=== PATIENT | female | born 1995 | race Caucasian/White ===

== ENCOUNTER 2022-04-21 14:11 | Emergency (ER) | payer OTHER, SELFPAY ==
--- NOTE | ~2022-04-21 | US_ITS ---
EXAMINATION: US OB <=14 wk fetus w TV DATE: 04/21/2022 18:08 INDICATION: Positive test. TECHNIQUE: Real-time transabdominal and transvaginal obstetric ultrasound. FINDINGS: No prior studies for comparison. The uterus measures 11 x 5.7 x 6.6 cm. There is a gestational sac which corresponds to a 5 week 5 day gestation. No pole is seen. There is a yolk sac. There is a subchorionic hemorrhage. Right ova ry measures 3.1 x 2.3 x 2.2 cm. Left ovary measures 3.3 x 2 x 1.5 cm. There is free fluid in the pelv is. IMPRESSION: 1. Intrauterine gestational sac corresponding to 5 week 5 day gestation (ROMMEL 12/17/2022). No fe e identified yet. 2: Moderate subchorionic hemorrhage. Reviewed, dictated and finalized at location A. IMPRESSION: 1. Intrauterine gestational sac corresponding to 5 week 5 day gestation (ROMMEL 08/2023). No pole identified yet. 2: Moderate subchorionic hemorrhage.
[2022-04-21 14:18] VITALS: BP 104/60; PULSE 71; RESP 16; TEMP 36.8; O2SAT 100
[2022-04-21 14:39] LABS: Appearance Urine Slightly Cloudy (Clear); Bilirubin Urine Negative (Negative); Blood Urine Negative (Negative); Color Urine Yellow (Yellow); Glucose Urine UA Negative (Negative); Ketones Urine Negative (Negative); Leukocyte Esterase Ur Trace LEU/UL (Negative); Nitrate Urine Negative (Negative); Protein Urine Negative (Negative); Specific Grav Ur 1.025 (1.001-1.035); Urobilinogen Urine 0.2 mg/dL (<2.0); pH Urine 6.5 (5.0-9.0)
--- NOTE | 2022-04-21 15:31 | ED.FEMALEGU ---
HPI - Female Genitourinary General Chief complaint: Urogenital-Female Stated complaint: burning with urination, period one week late Time Seen by Provider: 04/21/22 15:01 Source: patient Mode of arrival: ambulatory Limitations: no limitations History of Present Illness HPI Narrative: Patient is a 26-year-old female who presents the ED with report of urinary symptoms. Patient reports having urinary frequency and small void urines the past 4 days. She has also been having pain in her lower abdomen, worse in her left lower abdomen since then. She thought she may have a UTI. She notes a history of UTIs. She also reports that she is 1 week late on her menstrual cycle. She is currently sexually active. She had a child in July and has been having normal monthly menstrual cycles this year. She thought there was a chance she could be in March, but had a negative home test at that time. She did note her cycle in March consisted of more blood clots than usual, but did occur at the typical time. She has not had a cycle yet this month. She has not taken anything for the pain today. Denies any hematuria, fever, chills, nausea, vomiting. Patient's UPT positive in ED. This current makes her , 2 , 1 miscarriage. Patient sees [facility] in [facility]. Related Data Home Medications Medication Instructions Recorded Confirmed sertraline 50 mg tablet 50 mg PO DAILY 12/03/20 Allergies Allergy/AdvReac Type Severity Reaction Status Date / Time No Known Allergies Allergy Unverified 12/03/20 11:04 Review of Systems Review of Systems: CONSTITUTIONAL: Denies fever, chills, or sweats. CARDIOVASCULAR: Denies chest pain. RESPIRATORY: Denies dyspnea. GASTROINTESTINAL: Reports lower/LLQ ABD pain. Denies nausea, vomiting, or diarrhea. GENITOURINARY: Reports urinary frequency w/ small void urines. Denies hematuria, vaginal bleeding. SKIN: Denies rash or itching. MUSCULOSKELETAL: Denies back pain. NEUROLOGIC: Denies headache, numbness, or weakness. All systems reviewed & are unremarkable except as noted in HPI and below PMFSH Past Medical History Medical History (Updated 04/21/22 @ 18:36 by Leanna Price PA-C) History of miscarriage Spina bifida Surgical History Surgical History (Updated 04/21/22 @ 16:40 by Leanna Price PA-C) No pertinent past surgical history Family History Family History (Updated 12/03/20 @ 11:06 by Chrissie Riley MA) Mother Asthma Social History Social History (Updated 04/21/22 @ 16:40 by Leanna Price PA-C) Smoking status: Never smoker Alcohol intake: current Exam Narrative: GENERAL: Well appearing, thin, non-toxic, in no acute distress. HEAD: Normocephalic, atraumatic. NECK: Supple. No adenopathy, no masses. RESPIRATORY: Airway patent, respirations nonlabored. Clear to auscultation bilaterally, no rales, rhonchi, wheezing. CARDIOVASCULAR: Regular rate and rhythm without murmurs, rubs, or gallops. Peripheral pulses 2+ and equal bilaterally. ABDOMINAL: Soft, TTP in LLQ/suprapubic region, nondistended, no hepatosplenomegaly. Normoactive BS. MUSCULOSKELETAL: Moves all extremities. Strength/ROM intact without gross deformities. SKIN: Warm, dry, normal color. No rashes. NEURO: A&O X3. Speech clear. Cranial nerves II-XII grossly intact. Steady gait. No ataxic movements. PSYCHIATRIC: Appropriate mood and affect. Normal interaction. Course Vital Signs Vital signs: Vital Signs Temperature 98.3 F 04/21/22 14:18 Pulse Rate 71 04/21/22 14:18 Respiratory Rate 16 04/21/22 14:18 Blood Pressure 104/60 04/21/22 14:18 Pulse Oximetry 100 04/21/22 14:18 Oxygen Delivery Room Air 04/21/22 14:18 Temperature 98.3 F 04/21/22 14:18 Pulse Rate 71 04/21/22 14:18 Respiratory Rate 16 04/21/22 14:18 Blood Pressure 104/60 04/21/22 14:18 Pulse Oximetry 100 04/21/22 14:18 Oxygen Delivery Room Air
[2022-04-21 15:32] LABS: Mucus Urine Rare /lpf; Squamous Epithelial Cell Urine Few /hpf (Few); WBC Urine 16-20 /hpf
[2022-04-21 15:43] LABS: Add Urine Microscopic? YES
[2022-04-21 18:49] VITALS: BP 122/68; PULSE 76; RESP 18; O2SAT 99
== END 2022-04-21 18:50 | disposition home or self-care (01) ==
PROVIDERS: General Practice; Physician Assistant; Emergency Provider Emergency Medicine; PCP Physician Assistant
DX: O23.11 Infections of bladder in pregnancy, first trimester (principal); N30.01 Acute cystitis with hematuria; O99.891 Other specified diseases and conditions complicating pregnancy; Q05.9 Spina bifida, unspecified; O46.8X1 Other antepartum hemorrhage, first trimester; Z3A.01 Less than 8 weeks gestation of pregnancy
CPT/HCPCS: 36415; 76801; 76817; 81001; 81025; 84702; 87077; 87086; 87088; 99284

== ENCOUNTER 2023-01-02 08:59 | Emergency (ER) | payer OTHER, SELFPAY ==
--- NOTE | ~2023-01-02 | XR_ITS ---
XR chest 2V DATE: 01/02/2023 09:34 INDICATION: Shortness of breath. Mold exposure. TECHNIQUE: PA and lateral views COMPARISON: None FINDINGS: Normal heart size. No hilar or mediastinal enlargement. No pulmonary infiltrate or consolid ation, pleural effusion or pulmonary vascular congestion or pneumothorax. Included skeletal structure s appear normal. IMPRESSION: Negative Reviewed, dictated and finalized at location B. IMPRESSION: Negative
[2023-01-02 09:08] VITALS: BP 99/65; PULSE 68; RESP 12; TEMP 36.6; O2SAT 99
--- NOTE | 2023-01-02 09:11 | ED.URI ---
HPI - URI/Sore Throat General Chief Complaint: Upper Respiratory Infection Stated Complaint: SOB Time Seen by Provider: 01/02/23 09:17 Source: patient Mode of arrival: ambulatory Limitations: no limitations History of Present Illness HPI Narrative: 27 y/o female presented for c/o coughing, sneezing, and nasal congestion for about 2 weeks and is concerned for black mold exposure in her residence. cough is occasionally productive. Also reports dry skin. States she lives in the basement of a home, and has seen water leaking when it rains and black mold in the corners. States she fells better when out of the house. Denies epistaxis, sob, wheezing, n/v/d/f/c. Denies history of asthma or lung problems. Taking Benadryl nightly due to difficulty sleeping. Smokes marijuana occasionally Related Data Home Medications Medication Instructions Recorded Confirmed No Home Medications 01/02/23 01/02/23 Allergies Allergy/AdvReac Type Severity Reaction Status Date / Time No Known Allergies Allergy Verified 01/02/23 09:09 Review of Systems Review of Systems: CONSTITUTIONAL: Denies body aches, fever, chills, or sweats. EYES: Denies visual changes, redness, or discharge. ENT: Denies sore throat, or otalgia. CARDIOVASCULAR: Denies chest pain, palpitations, or edema. RESPIRATORY: Reports cough, denies sob, wheezing. GASTROINTESTINAL: Denies abdominal pain, nausea, vomiting, or diarrhea. GENITOURINARY: Denies dysuria or hematuria. SKIN: Denies rash, itching, or wounds. MUSCULOSKELETAL: Denies back pain, joint pain, or myalgia. NEUROLOGIC: Denies headache, numbness, tingling, or weakness. All systems reviewed & are unremarkable except as noted in HPI and below PMFSH Past Medical History Medical History History of miscarriage Spina bifida Surgical History Surgical History No pertinent past surgical history Family History Family History Mother Asthma Social History Social History Smoking status: Never smoker Alcohol intake: current Comments At time of signature, I have reviewed and agree with nursing past medical, surgical, social and family history unless otherwise noted. Please see nursing chart for further information. There is no relevant family history pertinent to the presenting complaint Exam Narrative: GENERAL: Well-appearing, in no acute distress. EYES: EOMI. No redness or drainage. Conjunctivae normal. ENT: Mucous membranes pink and moist. No rhinorrhea. TMs normal bilaterally. Throat normal. Uvula midline. NECK: Normal AROM. Supple. CHEST: No respiratory distress. LCTAB HEART: Regular rate and rhythm. No murmur appreciated. ABDOMEN: Soft, nontender, nondistended, normal active bowel sounds. EXTREMITIES: Normal range of motion. No edema. SKIN: Warm, dry, no rash. Capillary refill normal. Normal skin turgor. NEURO: Alert and oriented x3. Gait steady. PSYCH: Normal affect. Course Course Emergency Course: Patient is aware of diagnosis, understands and agrees to treatment plan. Anticipatory guidance given. Patient agrees to follow-up as directed and is aware of reasons to seek care at the emergency department. Portions of this record may have been created with voice recognition software Level of Care: Express Care Visit Vital Signs Vital signs: Vital Signs Temperature 98 F 01/02/23 09:08 Pulse Rate 68 01/02/23 09:08 Respiratory Rate 12 01/02/23 09:08 Blood Pressure 99/65 L 01/02/23 09:08 Pulse Oximetry 99 01/02/23 09:08 Oxygen Delivery Room Air 01/02/23 09:08 Temperature 98 F 01/02/23 09:08 Pulse Rate 68 01/02/23 09:08 Respiratory Rate 12 01/02/23 09:08 Blood Pressure 99/65 L 01/02/23 09:08 Pulse Oximetry 99 01/02/23 09:
== END 2023-01-02 10:27 | disposition home or self-care (01) ==
PROVIDERS: Emergency Provider Nurse Practitioner Family; PCP Physician Assistant
DX: J30.89 Other allergic rhinitis (principal)
CPT/HCPCS: 71046; 99213; G0463

== ENCOUNTER 2023-05-07 08:50 | Emergency (ER) | payer OTHER, SELFPAY ==
[2023-05-07 08:58] VITALS: BP 96/51; PULSE 82; RESP 16; TEMP 37.1; O2SAT 99
--- NOTE | 2023-05-07 09:22 | ED.GENADULT ---
HPI - General Adult General Chief complaint: Upper Respiratory Infection Stated complaint: congestion /diarrhea/back pain Source: patient Mode of arrival: ambulatory Limitations: no limitations History of Present Illness HPI narrative: Patient presents for evaluation of sick symptoms. She states that she first noted some sinus congestion one week ago. Symptoms have persisted since that time. Nasal discharge is green. She has developed a productive cough of clear/green sputum. Over the last 24 hrs she has developed nausea, vomiting and diarrhea. She has some lower abdominal cramping but is not sure if it is related to recent menstruation or associated with diarrhea. 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 She denies any vaginal discharge or urinary symptoms but believes she may have a UTI due to low back pain. She had some leftover antibiotics, which she believes may be flagyl, which she started taking for her symptoms. Related Data Allergies Allergy/AdvReac Type Severity Reaction Status Date / Time No Known Allergies Allergy Verified 05/07/23 09:07 Review of Systems Review of Systems: CONSTITUTIONAL: Denies fever, chills, or sweats. EYES: Denies visual changes, redness, or discharge. ENT: Reports sinus congestion, mucopurulent discharge from the nares and sore throat. CARDIOVASCULAR: Denies chest pain, palpitations, or edema. RESPIRATORY: Reports cough. Denies shortness of breath. GASTROINTESTINAL: Reports nausea, vomiting, diarrhea. Denies abdominal pain. GENITOURINARY: Denies dysuria or hematuria. SKIN: Denies rash or itching. MUSCULOSKELETAL: Reports low back pain. Denies joint pain, or myalgia. NEUROLOGIC: Denies headache, numbness, dizziness, or weakness. PSYCHIATRIC: Denies anxiety or depression. [facility] Past Medical History Medical History History of miscarriage Spina bifida Surgical History Surgical History No pertinent past surgical history Family History Family History Mother Asthma Social History Social History (Reviewed 07/30/23 @ 09:28 by Roel Sosa, [facility], [place] Smoking status: Never smoker Alcohol intake: current Substance use: current Substance use type: marijuana Additional occupation/education comments: adult dancer Gender identity (if verbalized by the patient): Female Spiritual care concerns: No Exam Narrative: GENERAL: Well-appearing, well-nourished, and in no acute distress. HEAD: Normocephalic, atraumatic. EYES: PERRLA and EOMI. ENT: Thick yellow drainage in bilateral nares. Mucous membranes moist. Oropharynx without tonsillar hypertrophy exudate or other lesions. Bilateral TMs pearly sheriff nonbulging NECK: Supple. No adenopathy or masses. No carotid bruits or JVD CHEST: Clear to auscultation. No respiratory distress. No wheezes rales or rhonchi HEART: Regular rate and rhythm. No murmur heard. Normal peripheral pulses. ABDOMEN: Soft, nontender, nondistended, normal active bowel sounds. EXTREMITIES: Normal range of motion. No edema. SKIN: Warm, dry, no rash. NEURO: No focal deficits. Alert and oriented x3. PSYCH: Normal mood and affect. Course Course Emergency Course: This is a 27-year-old female who presented for evaluation of sinus symptoms, nausea, vomiting, diarrhea. She also questioned whether she had a UTI. Urine today not suggestive of UTI. Will send urine for STI testing. She meets criteria for ABRS based upon characteristics of nasal discharge. Will tx with augmentin. Zofran for nausea. Increase hydration. Follow up with primary care provider. Go to ER for worsening symptoms. Pt in agreement with plan of care. Level of Care: Ex
[2023-05-07] MEDS: ONDANSETRON HCL ODT 4 MG TABLET PO (09:31)
== END 2023-05-07 10:02 | disposition home or self-care (01) ==
PROVIDERS: Emergency Provider Nurse Practitioner; PCP Physician Assistant
DX: J32.9 Chronic sinusitis, unspecified (principal); R11.2 Nausea with vomiting, unspecified; R19.7 Diarrhea, unspecified; F12.90 Cannabis use, unspecified, uncomplicated; Q05.9 Spina bifida, unspecified
CPT/HCPCS: 81003; 81025; 87491; 87591; 87661; 87804; 99214; A9270; G0463

== ENCOUNTER 2025-04-21 14:48 | Emergency (ER) | payer OTHER, SELFPAY ==
--- NOTE | ~2025-04-21 | XR_ITS ---
EXAM: XR ankle LT min 3V DATE: 04/21/2025 15:23 HISTORY: LT lat/medial ankle pain/bruising/swelling, fell last night . COMPARISON: None available. FINDINGS: Normal mineralization. No fracture or dislocation. No lytic or blastic lesion. Joint space s are maintained. No erosion or periosteal change. Soft tissue swelling over the lateral malleolus. IMPRESSION: No acute osseous finding the left ankle. Reviewed, dictated and finalized at location K.
--- NOTE | ~2025-04-21 | XR_ITS ---
EXAM: XR foot LT min 3V DATE: 04/21/2025 15:18 HISTORY: Lt foot pain/swelling , fell yesterday . COMPARISON: None available. FINDINGS: Normal mineralization. No fracture or dislocation. No lytic or blastic lesion. Joint space s are maintained. No erosion or periosteal change. Soft tissues within normal limits. IMPRESSION: No acute osseous finding in the left foot. Reviewed, dictated and finalized at location K.
[2025-04-21 14:59] VITALS: BP 98/60; PULSE 66; RESP 18; TEMP 36.8; O2SAT 98
--- NOTE | 2025-04-21 15:09 | ED.LOWEXIN ---
HPI - Extremity Injury (Lower) General Chief Complaint: Extremity Injury, Lower Stated Complaint: Left Foot Pain Time Seen by Provider: 04/21/25 15:32 Source: patient Mode of arrival: ambulatory Limitations: no limitations History of Present Illness HPI Narrative: 29 Year old female presented for complaint of left foot and ankle pain following injury last night. She states while intoxicated she attempted to jump over a yair, however she fell and twisted the ankle. She took ibuprofen this morning, has iced and elevated the foot. denies deformity, numbness tingling weakness. Rates pain 04/17. She has been using family member crutches due to pain with weight-bearing. Related Data Home Medications ?Medication ?Instructions ?Recorded ?Confirmed ?Last Taken ?Type No Home Medications 04/21/25 04/21/25 Unknown History Allergies Allergy/AdvReac Type Severity Reaction Status Date / Time No Known Allergies Allergy Verified 04/21/25 15:02 Review of Systems Review of Systems: CONSTITUTIONAL: Denies body aches, fever, chills EYES: Denies visual changes ENT: Denies rhinorrhea, congestion CARDIOVASCULAR: Denies chest pain, palpitations, or edema. RESPIRATORY: Denies cough or dyspnea. SKIN: Denies rash, itching, or wounds. MUSCULOSKELETAL: reports left foot and ankle pain NEUROLOGIC: Denies headache, numbness, tingling, or weakness. All systems reviewed & are unremarkable except as noted in HPI and below PMFSH Past Medical History Medical History History of miscarriage Spina bifida Surgical History Surgical History No pertinent past surgical history Family History Family History Mother Asthma Social History Social History Smoking status: Never smoker Alcohol intake: current Substance use: current Substance use type: marijuana Additional occupation/education comments: adult dancer Gender identity (if verbalized by the patient): Female Spiritual care concerns: No Comments At time of signature, I have reviewed and agree with nursing past medical, surgical, social and family history unless otherwise noted. Please see nursing chart for further information. There is no relevant family history pertinent to the presenting complaint Exam Narrative: GENERAL: Well-appearing CHEST: Speaks in full sentences. No respiratory distress. HEART: Regular rate and rhythm. Normal and equal peripheral pulses. EXTREMITIES: Left foot dorsal aspect with scattered abrasions and bruising. No swelling. Left lateral ankle swelling around the malleolus. decreased range of motion with flexion/extension/rotation of ankle due to pain with movement. tender throughout ankle and foot. no obvious deformity; alignment normal, pulse palpable and equal bilaterally, skin warm, dry, pink. Capillary refill less than 3 seconds. SKIN: Warm, dry NEURO: Alert and oriented x3. PSYCH: Normal mood and affect Course Course Emergency Course: Patient is aware of diagnosis, understands and agrees to treatment plan. Anticipatory guidance given. Patient agrees to follow-up as directed and is aware of reasons to seek care at the emergency department. Portions of this record may have been created with voice recognition software Level of Care: Express Care Visit Vital Signs Vital signs: Vital Signs Temperature 98.2 F 04/21/25 14:59 Pulse Rate 66 04/21/25 14:59 Respiratory Rate 18 04/21/25 14:59 Blood Pressure 98/60 L 04/21/25 14:59 Pulse Oximetry 98 04/21/25 14:59 Oxygen Delivery Room Air 04/21/25 14:59 Temperature 98.2 F 04/21/25 14:59 Pulse Rate 66 04/21/25 14:59 Respiratory Rate 18 04/21/25 14:59 Blood Pressure 98/60 L 04/21/25 14:59 Pulse Oximetry 98 04/21/25 14:59 Oxygen Delivery Room Air 04/21/25 14:59 Reviewed MDM - Extremity Injury (Lower) MDM Narrative Medical decision making narrative: Discussed physical exam findings and x-ray. Jorge Luis wrap applied. Patient also requested crutches because she does not feel she can bear weight. She has been using her brother's. Advised supportive measures and signs/symptoms to go to the ER. Pt is appropriate for outpt treatment and f/u. Differential Diagnosis Differential diagnosis: Likely ankle sprain and strain, ankle fracture and other (foot fracture) Imaging Data Radiologist's impression: Patient: Mary Ellen Jackson [place] : 1995 MR#: [id number] Age: 29 Acct:[id number] Loc: [facility] ADM Date: 04/21/25Attending Dr: EXAM: XR foot LT min 3V DATE: 04/21/2025 15:18 HISTORY: Lt foot pain/swelling , fell yesterday . COMPARISON: None available. FINDINGS: Normal mineralization. No fracture or dislocation. No lytic or blastic lesion. Joint spaces are maintained. No erosion or periosteal change. Soft tissues within normal limits. IMPRESSION: No acute osseous finding in the left foot. Patient: Mary Ellen Jackson EXAM: XR ankle LT min 3V DATE: 04/21/2025 15:23 HISTORY: LT lat/medial ankle pain/bruising/swelling, fell last night . COMPARISON: None available. FINDINGS: Normal mineralization. No fracture or dislocation. No lytic or blastic lesion. Joint spaces are maintained. No erosion or periosteal change. Soft tissue swelling over the lateral malleolus. IMPRESSION: No acute osseous finding the left ankle. Discharge Plan Discharge Clinical Impression: Ankle sprain and strain Patient Disposition: Home Condition: Stable Instructions: Ankle Sprain (ED) Additional Instructions: Rest and elevate the left leg; bear weight as tolerated Apply ice 15-20 minute intervals several times a day Keep it wrapped with JORGE LUIS or use a soft ankle splint Motrin 600mg every 8 hours for up to 5 days, alternate with Tylenol 1000mg every 8 hours as needed Follow up with your primary care provider as needed in 1-2 weeks go to the ER for any worsening symptoms or concerns Patient Language: Trinidadian Prescriptions: No Action No Home Medications Follow-up/Referrals: PHYSICIAN,CHIEF PHYSICAL THERAPIST [Primary Care Provider] - Time of Disposition: 15:38
== END 2025-04-21 15:48 | disposition home or self-care (01) ==
PROVIDERS: Emergency Provider Nurse Practitioner Family
DX: S93.402A Sprain of unspecified ligament of left ankle, initial encounter (principal); S96.912A Strain of unspecified muscle and tendon at ankle and foot level, left foot, initial encounter; W19.XXXA Unspecified fall, initial encounter; Q05.9 Spina bifida, unspecified; F17.210 Nicotine dependence, cigarettes, uncomplicated
CPT/HCPCS: 73610; 73630; 99213; G0463